=== PATIENT | male | born 1980 | race Caucasian/White ===

== ENCOUNTER → 2021-07-19 | Outpatient (CLI) | payer OTHER ==
--- NOTE | 2021-07-19 10:03 | KCIC ---
EXAM: MRI chest without IV contrast - pectoralis protocol. DATE: 07/19/2021 8:21 AM COMPARISON: None INDICATION: Reason: INJURY TO RIGHT PECTORALIS / Spl. Instructions: / History: Injured right pectora lis insertion 4 days ago, lifting weights. TECHNIQUE: Multiplanar, multisequence MR imaging of the left chest wall - pectoralis protocol without contrast. FINDINGS: Full thickness, full width tear of the pectoralis tendon at the attachment, approximately 4 cm from t he humeral attachment. There is moderate edema within the pectoralis muscle belly involving the clavi cular, sternal and abdominal heads. Small associated hematoma adjacent to the pectoralis tendon. Associated soft tissue swelling within the right chest wall. Rotator cuff muscle signal and bulk is g rossly normal without fatty atrophy. No obvious rotator cuff muscle tears within the limitations of l arge [id number] imaging. No right shoulder joint effusion. T1 marrow signal. No fracture or osteonecrosis. Impression: Full-thickness full width tear of the pectoralis tendon at the attachment with approximately 4 cm gap . Small associated hematoma with associated soft tissue swelling. Electronically signed by: Lobito Berger MD (07/19/2021 10:01 AM) [id number]
== END ==
LOC: KCIC MRI 08:13
PROVIDERS: ATTEND Orthopaedic Surgery
DX: S29.011A Strain of muscle and tendon of front wall of thorax, initial encounter (principal); M79.89 Other specified soft tissue disorders; X58.XXXA Exposure to other specified factors, initial encounter; Y93.89 Activity, other specified; Y92.89 Other specified places as the place of occurrence of the external cause; Y99.8 Other external cause status
CPT/HCPCS: 71550